=== PATIENT | male | born 1990 | race African-American/Black ===

== ENCOUNTER 2017-12-18 18:43 | Emergency (ER) | payer BC ==
[~2017-12-18] VITALS: Ht 180.3 cm; Wt 140.6 kg
[2017-12-18] MEDS ORDERED: KETOROLAC TROMETHAMINE 60 MG/2 ML VIAL IM ONE (19:45)
--- NOTE | 2017-12-18 20:32 | Diagnostic Imaging Report ---
SHOULDER 2+VW RT - HOPD HISTORY: Status post fall, right shoulder pain. COMPARISON: None available. FINDINGS: Internal rotation, external rotation, and scapular Y view Bones: No acute displaced fracture. Bony protuberance of the proximal humeral metadiaphysis with apex directed away from the joint space on scapular Y view may represent an osteochondroma. Osseous alignment is within normal limits. Joints: The joint spaces are well-maintained. Soft tissues: The soft tissues appear unremarkable. IMPRESSION: No acute radiographic abnormality. Bony exostosis of the proximal humerus may represent an osteochondroma. Signed by: DR. Luc Madsen MD on 12/18/2017 8:28 PM
--- NOTE | 2017-12-18 20:33 | Diagnostic Imaging Report ---
KNEE 4VW LT - HOPD HISTORY: Left patellar pain status post fall. COMPARISON: None available. FINDINGS: Bones: No acute displaced fracture. Osseous alignment is within normal limits. Joints: The joint spaces are well-maintained. Soft tissues: The soft tissues appear unremarkable. IMPRESSION: No acute radiographic abnormality. Signed by: DR. Luc Madsen MD on 12/18/2017 8:29 PM
[2017-12-18] MEDS ORDERED: IBUPROFEN400 MG PO (20:45)
[2017-12-18 21:26] VITALS: BP 142/94
== END 2017-12-18 20:45 | disposition home or self-care (01) ==
LOC: FSED 18:43
DX: S83.015A Lateral dislocation of left patella, initial encounter (principal); M25.511 Pain in right shoulder; X50.1XXA Overexertion from prolonged static or awkward postures, initial encounter; Y92.008 Other place in unspecified non-institutional (private) residence as the place of occurrence of the external cause
CPT/HCPCS: 29530; 73030; 73564; 99283; J1885

== ENCOUNTER 2018-02-07 03:07 | Emergency (ER) | payer BC ==
[~2018-02-07] VITALS: Ht 180.3 cm; Wt 140.6 kg
[~2018-02-07 03:07] MED LIST: IBUPROFEN400 MG PO
[2018-02-07] MEDS ORDERED: AMOXICILLIN/CLAVULANATE K 875 MG TAB PO STA (03:57)
[2018-02-07] MEDS ORDERED: TETANUS/DIPHTHERIA TOX ADULT 0.5 ML SYR IM ONE (04:00)
[2018-02-07] MEDS ORDERED: NEOMYCIN/POLYMYX/BACITR OINT 0.9 GM PKT ONE (04:03)
[2018-02-07] MEDS ORDERED: TRAMADOL HCL 50 MG TAB PO ONE (04:30)
--- NOTE | 2018-02-07 05:02 | Diagnostic Imaging Report ---
HAND 3+ VIEWS LEFT Comparison: None Clinical history: ^EVAL FOR FB/FX S/P DOG BITE ^[id number] ^0430 ^Y Findings: No fracture or dislocation. Mild soft tissue swelling without radiopaque foreign body. Impression: No acute bony abnormality or radiopaque foreign body Signed by: Dr Arlyn Jang MD on 02/07/2018 4:58 AM
[2018-02-07] MEDS ORDERED: ACETAMINOPHEN/CODEINE 300MG - 30MG TAB PO ONE (05:15)
[2018-02-07] MEDS ORDERED: ACETAMINOPHEN/CODEINE 300MG - 30MG TAB ONE (05:20)
== END 2018-02-07 05:10 | disposition home or self-care (01) ==
LOC: ER 03:07
DX: S60.472A Other superficial bite of right middle finger, initial encounter (principal); S60.474A Other superficial bite of right ring finger, initial encounter; S60.476A Other superficial bite of right little finger, initial encounter; S60.470A Other superficial bite of right index finger, initial encounter; S60.572A Other superficial bite of hand of left hand, initial encounter; S60.872A Other superficial bite of left wrist, initial encounter; W54.0XXA Bitten by dog, initial encounter; Y92.009 Unspecified place in unspecified non-institutional (private) residence as the place of occurrence of the external cause; Z23 Encounter for immunization; I10 Essential (primary) hypertension; K21.9 Gastro-esophageal reflux disease without esophagitis; M41.9 Scoliosis, unspecified
CPT/HCPCS: 90471; 90714; 99283

== ENCOUNTER 2018-11-27 14:11 | Emergency (ER) | payer BC ==
[~2018-11-27] VITALS: Ht 180.3 cm; Wt 143.1 kg
--- OUTSIDE RECORDS SUMMARY | 2018-11-27 14:13 | XMS REPORT ---
Author Author [facility] Address Unknown Phone Unavailable Care Team Providers Care Exercise Manager Name Role Phone Bradford DENT Unavailable Unavailable Brunilda MATT Unavailable Unavailable Problems This patient has no known problems. Allergies, Adverse Reactions, Alerts This patient has no known allergies or adverse reactions. Medications This patient has no known medications. Results Test Description Test Time Test Comments Text Results Atomic Results Result Comments HAND 3+ VIEWS LEFT 2018-02-07 04:56:00 [place] [address] Patient Name: ZANE VALERIO MR #: [id number] : 1990 Age/Sex: 27/M Req #: [id number] Adm Physician: Ordered by: RENETTA DENT MD Report #: [id number] Location: ER Room/Bed: Procedure: [id number] DX/HAND 3+ VIEWS LEFT Exam Date: 02/07/18 Exam Time: 429 REPORT STATUS: Signed HAND 3+ VIEWS LEFT Comparison: None Clinical history: EVAL FOR FB/FX S/P DOG BITE [id number] Y Findings: No fracture or dislocation. Mild soft tissue swelling without radiopaque foreign body. Impression: No acute bony abnormality or radiopaque foreign body Signed by: Dr Elise Jang MD on 02/07/2018 4:58 AM Dictated By: ELISE JANG MD 7 [place] scribed By: RICHARD on 02/07/18457 COPY TO: RENETTA DENT MD KNEE 4VW LT - HOPD 2017-12-18 20:28:00 [place] [address] Patient Name: ZANE VALERIO MR #: [id number] : 1990 Age/Sex: 27/M Req #: [id number] Adm Physician: Ordered by: JUSTA MATT MD Report #: [id number] Location: [facility] Room/Bed: Procedure: [id number] HOPD/KNEE 4VW LT - HOPD Exam Date: 12/18/17 Exam Time: 1999 REPORT STATUS: Signed KNEE 4VW LT - HOPD HISTORY: Left patellar pain status post fall. COMPARISON: None available. FINDINGS: Bones: No acute displaced fracture. Osseous alignment is within normal limits. Joints: The joint spaces are well-maintained. Soft tissues: The soft tissues appear unremarkable. IMPRESSION: No acute radiographic abnormality. Signed by: DR. Luc Cr MD on 12/18/2017 8:29 PM Dictated By: LUC CR MD 28 Transcribed By: RICHARD on 12/18/172028 COPY TO: JUSTA MATT MD SHOULDER 2+VW RT - HOPD 2017-12-18 20:20:00 [place] [address] Patient Name: ZANE VALERIO MR #: [id number] : 1990 Age/Sex: 27/M Req #: [id number] [facility] Physician: Ordered by: JUSTA MATT MD Report #: [id number] Location: [facility] Room/Bed: Procedure: [id number] HOPD/SHOULDER 2+VW RT - HOPD Exam Date: 12/18/17 Exam Time: 1999 REPORT STATUS: Signed SHOULDER 2+VW RT - HOPD HISTORY: Status post fall, right shoulder pain. COMPARISON: None available. FINDINGS: Internal rotation, external rotation, and scapular Y view Bones: No acute displaced fracture. Bony protuberance of the proximal humeral metadiaphysis with apex directed away from the joint space on scapular Y view may represent an osteochondroma. Osseous alignment is within normal limits. Joints: The joint spaces are well-maintained. Soft tissues: The soft tissues appear unremarkable. IMPRESSION: No acute radiographic abnormality. Bony exostosis of the proximal humerus may represent an osteochondroma. Signed by: DR. Luc Cr MD on 12/18/2017 8:28 PM Dictated By: LUC CR MD 27 Transcribed By: RICHARD on 12/18/172027 COPY TO: JUSTA MATT MD
--- OUTSIDE RECORDS SUMMARY | 2018-11-27 14:13 | XMS REPORT | Clinical Summary ---
Author Author [facility] Address Unknown Phone Unavailable Care Team Providers Care Clinical Editor Name Role Phone Rishi Carpenter MD PCP Allergies No Known Allergies Medications End Date Status Medication Sig Dispensed Refills Start Date Active traMADol (ULTRAM) 50 mg 1 tablet 0 tabletIndications: Pain daily. 8 Active SUMAtriptan (IMITREX) 50 Take 1 tablet 8 tablet 3 MG tabletIndications: (50 mg total) 9 Migraine without aura and by mouth once without status as needed for migrainosus, not migraine for intractable up to 1 dose. May repeat in 2 hours if needed. Max 2 doses a day Active losartan-hydrochlorothiaz TAKE 1 TABLET 90 tablet 1 scar (HYZAAR) 100-25 mg BY MOUTH 9 per tabletIndications: EVERY DAY Essential hypertension Active ipratropium (ATROVENT) USE 2 SPRAYS 30 mL 0 0.03 % nasal IN EACH 9 sprayIndications: NOSTRIL 3 Seasonal allergic (THREE) TIMES rhinitis due to pollen A DAY FOR 5 DAYS. Active fluticasone propionate SPRAY 2 16 mL 1 (FLONASE) 50 SPRAYS INTO 9 mcg/actuation nasal EACH NOSTRIL sprayIndications: EVERY DAY Seasonal allergic rhinitis due to pollen Active omeprazole (PriLOSEC) 20 Take 20 mg by 0 MG capsule mouth daily. Active wkjyvpf-ykwiekmcvtpcw-baw Take 1 tablet 0 feine (EXCEDRIN MIGRAINE) by mouth 250-250-65 mg per tablet every 6 (six) hours as needed for headaches. 04/08/2018 Discontinued (Discontinued by another clinician) amoxicillin-pot 1 tablet 2 0 clavulanate (AUGMENTIN) (two) times a 8 875-125 mg per tablet day. 02/27/2018 Discontinued (Dose adjustment) losartan-hydrochlorothiaz Take 1 tablet 1 scar (HYZAAR) 50-12.5 mg by mouth 8 per tablet daily. 09/12/2018 Discontinued (Stop Taking at Discharge) IBU 800 mg tablet 1 tablet 3 0 (three) times 8 a day. 04/08/2018 Discontinued (Discontinued by another clinician) acetaminophen-codeine Take 1 tablet 0 (TYLENOL WITH CODEINE #3) by mouth 8 300-30 mg per tablet every 6 (six) hours as needed. for pain 09/12/2018 Discontinued (Stop Taking at Discharge) naproxen (NAPROSYN) 500 Take 500 mg 0 MG tablet by mouth 2 (two) times a day with meals. 06/03/2018 Discontinued (Reorder) losartan-hydrochlorothiaz Take 1 tablet 90 tablet 0 scar (HYZAAR) 100-25 mg by mouth 8 per tabletIndications: daily. Essential hypertension 04/30/2018 Discontinued (Reorder) SUMAtriptan (IMITREX) 50 Take 1 tablet 8 tablet 0 MG tabletIndications: (50 mg total) 8 Migraine without aura and by mouth once without status as needed for migrainosus, not migraine for intractable up to 1 dose. May repeat in 2 hours if needed. Max 2 doses a day 08/16/2018 Discontinued (Reorder) fluticasone propionate 2 sprays (100 15.8 mL 3 (FLONASE) 50 mcg total) by 9 mcg/actuation nasal Each Nare sprayIndications: route daily. Seasonal allergic rhinitis due to pollen 07/03/2018 Discontinued (Reorder) ipratropium (ATROVENT) 2 sprays into 30 mL 0 0.03 % nasal each nostril 9 sprayIndications: 3 (three) Seasonal allergic times a day rhinitis due to pollen for 5 days. 10/12/2018 celecoxib (CeleBREX) 100 Take 1 60 capsule 0 MG capsule capsule (100 9 mg total) by mouth 2 (two) times a day for 30 days. 09/27/2018 traMADol (ULTRAM) 50 mg Take 1 tablet 15 tablet 0 tablet (50 mg total) 9 by mouth every 8 (eight) hours as needed for moderate pain for up to 15 days. Active Problems Problem Noted Date Patellar maltracking 09/12/2018 Diaphragmatic hernia without obstruction and without gangrene 08/12/2018 Acute traumatic internal derangement of left knee 04/18/2018 Overview: Encouraged follow up with specialist as planned. Closed displaced fracture of right patella 04/18/2018 Essential hypertension 02/27/2018 Morbid obesity due to excess calories 02/27/2018 Encounters Care Team Description Date Type Specialty Abel Tong MD 09/12/2018 Anesthesia General Surgery Event Edwardo Garcia Jr., MD LEFT DIAGNOSTIC KNEE SCOPE, SYNOVECTOMY, INTRA-ARTICULAR INJECTION 09/12/2018 Surgery General Surgery Edwardo Garcia Jr., MD Patellar maltracking, unspecified laterality (Primary Dx) 09/12/2018 Hospital General Surgery Encounter Rishi Carpenter MD Seasonal allergic rhinitis due to pollen 08/16/2018 Refill Internal Medicine Edwardo Garcia Jr., MD Acute traumatic internal derangement of left knee, subsequent encounter (Primary Dx); Impingement syndrome involving patellar fat pad of left knee 08/12/2018 Office Visit Orthopedic Surgery Edwardo Garcia Jr., MD Acute traumatic internal derangement of left knee, sequela; Closed displaced fracture of right patella, unspecified fracture morphology, initial encounter 07/16/2018 Hospital Radiology Encounter Rishi Carpenter MD Seasonal allergic rhinitis due to pollen 07/03/2018 Refill Internal Medicine Rishi Carpenter MD Essential hypertension (Primary Dx); Acute non-recurrent maxillary sinusitis; Seasonal allergic rhinitis due to pollen; NSAID induced gastritis; Hiatal hernia with GERD and esophagitis; Morbid obesity due to excess calories (HCC) 06/10/2018 Office Visit Internal Medicine Rishi Carpenter MD Essential hypertension 06/03/2018 Refill Internal Medicine Rishi Carpenter MD Essential hypertension (Primary Dx); ALECIA (obstructive sleep apnea); Morbid obesity due to excess calories (HCC); Migraine without aura and without status migrainosus, not intractable 04/30/2018 Office Visit Internal Medicine Edwardo Garcia Jr., MD Closed displaced fracture of right patella, unspecified fracture morphology, initial encounter (Primary Dx); Acute traumatic internal derangement of left knee, sequela 04/08/2018 Office Visit Orthopedic Surgery Tiana Rayo MA Left knee pain, unspecified chronicity (Primary Dx) 04/04/2018 Orders Only Orthopedic Surgery Rishi Carpenter MD Essential hypertension (Primary Dx); Morbid obesity due to excess calories (HCC); ALECIA (obstructive sleep apnea); H. pylori infection; Acute traumatic internal derangement of left knee, sequela; Visit for wound check; Migraine without aura and without status migrainosus, not intractable 02/27/2018 Office Visit Internal Medicine Vira Banks 02/12/2018 Telephone Family Medicine after 11/26/2017 Family History Medical History Relation Name Comments Diabetes Father Relation Name Status Comments Father Social History Date Tobacco Use Types Packs/Day Years Used Never Smoker Smokeless Tobacco: Never Used Drinks/Week oz/Week Comments Alcohol Use 1 Cans of beer 1.0 socially Yes Sex Assigned at Date Recorded Not on file Industry Job Start Date Occupation Not on file Not on file Not on file Travel End Travel History Travel Start No recent travel history available. Last Filed Vital Signs Reading Time Taken Comments Vital Sign 127/58 09/12/2018 11:30 AM CDT Blood Pressure 78 09/12/2018 11:30 AM CDT Pulse 36.8 C (98.3 F) 09/12/2018 10:24 AM CDT Temperature 24 09/12/2018 11:30 AM CDT Respiratory Rate 97% 09/12/2018 11:30 AM CDT Oxygen Saturation - - Inhaled Oxygen Concentration 142 kg (314 lb 1.6 oz) 09/12/2018 7:36 AM CDT Weight 180.3 cm (5' 11") 09/12/2018 7:36 AM CDT Height 43.81 09/12/2018 7:36 AM CDT Body Mass Index Plan of Treatment Health Maintenance Due Date Last Done Comments INFLUENZA VACCINE 10/02/2018 Procedures Comments Procedure Name Priority Date/Time Associated Diagnosis MS AN ELECTIVE Routine 09/12/2018 SUPRAGLOTTIC AIRWAY 9:16 AM CDT Procedure Note - Elda Gaitan - 09/12/2018 9:16 AM CDT Airway Performed by: Elda Gaitan Authorized by: Abel Tong MD Location: OR Urgency: Elective Difficult Airway: No Anesthesio logist: Abel Tong MD Resident/C RNA/AA: Elda Gaitan Performed by: resident/C RNA/AA Preoxygena gretta with 100% O2: Yes C-spine Precaution s Maintained Throughout : Yes Mask Ventilatio n: Not attempted Final Airway Type: Supraglott ic airway Final LMA: Unique LMA Size: 5 Number of Attempts at Approach: 1 OPERATION, KNEE, 09/12/2018 Patellar maltracking ARTHROSCOPIC 9:02 AM CDT Impingement syndrome involving patellar fat pad of left knee HGB & HCT I-STAT Routine 09/12/2018 7:45 AM CDT MRI KNEE WO CONTRAST LEFT Routine 07/16/2018 Acute traumatic internal 4:19 PM CDT derangement of left knee, sequela Closed displaced fracture of right patella, unspecified fracture morphology, initial encounter COMPREHENSIVE METABOLIC Routine 06/10/2018 Essential hypertension PANEL 2:47 PM CDT TRIGLYCERIDES Routine 06/10/2018 Morbid obesity due to 2:46 PM CDT excess calories (HCC) HDL CHOLESTEROL Routine 06/10/2018 Morbid obesity due to 2:46 PM CDT excess calories (HCC) LDL CHOLESTEROL, DIRECT Routine 06/10/2018 Morbid obesity due to 2:46 PM CDT excess calories (HCC) COMPREHENSIVE METABOLIC Routine 04/30/2018 Essential hypertension PANEL 2:45 PM LINE [facility] HEMOGLOBIN A1C Routine 04/30/2018 Essential hypertension 2:37 PM LINE WALKER CBC WITH PLATELET AND Routine 04/30/2018 Essential hypertension DIFFERENTIAL 2:37 PM LINE W[facility]ER XR KNEE 4+ VW LEFT Routine 04/08/2018 Left knee pain, 3:54 PM LINE [facility] unspecified chronicity after 11/26/2017 Results * HGB & HCT I-Stat (09/12/2018 7:45 AM CDT) Hematocrit, 49.0Comment: test performed by 36.0 - 50.0 % [facility] whole blood hide and 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 [place] [id number] [facility] * MRI Knee Left Wo Contrast (07/16/2018 4:19 PM CDT) Specimen Narrative Performed At EXAMINATION:MRI KNEE WO CONTRAST LEFT [facility] CLINICAL HISTORY:S83.105S Unspecified dislocation of left kneesequela, S82.001A Unspecified fracture of right patellainitial encounter for closed fracture, patella fx TECHNIQUE:Multiplanar multisequence MR imaging of theleft knee was performed without contrast. COMPARISON:Radiographs from 04/08/2018 FINDINGS: Cruciate ligaments: Intact. Menisci: There is mild superior articular surface irregularity of the body of the medial meniscus without discrete tear. Lateral meniscus is intact. Collateral ligaments: Intact. Bone marrow: No focal abnormality. There is an 8 mm subcortical cyst involving the tibial attachment of the PCL. Articular cartilage: There is severe cartilage irregularity and thinning involving the lateral aspect of the lateral femoral condyle with subchondral edema measuring 1 cm in the coronal plane and 1.4 cm in sagittal plane (series 4 image 19 and series 8 image 7). No focal defect noted in the medial and patellofemoral compartment. Effusion: Joint fluid is physiologic. Extensor mechanism: Intact. Mild lateral patellar tilt. Soft tissues: No focal abnormality. IMPRESSION: 1.No evidence of patellar fracture. 2.Area of severe cartilage irregularity and thinning with subchondral edema in the lateral aspect of lateral femoral condyle. 3.Mild superior articular surface irregularity of the body of the medial meniscus. A nondisplaced horizontal tear is not excluded. [id number] Procedure Note Hm Interface, Radiology Results Incoming - 07/16/2018 4:44 PM CDT EXAMINATION: MRI KNEE WO CONTRAST LEFT CLINICAL HISTORY: S83.105S Unspecified dislocation of left knee sequela, S82.001A Unspecified fracture of right patella initial encounter for closed fracture, patella fx TECHNIQUE: Multiplanar multisequence MR imaging of the left knee was performed without contrast. COMPARISON: Radiographs from 04/08/2018 FINDINGS: Cruciate ligaments: Intact. Menisci: There is mild superior articular surface irregularity of the body of the medial meniscus without discrete tear. Lateral meniscus is intact. Collateral ligaments: Intact. Bone marrow: No focal abnormality. There is an 8 mm subcortical cyst involving the tibial attachment of the PCL. Articular cartilage: There is severe cartilage irregularity and thinning involving the lateral aspect of the lateral femoral condyle with subchondral edema measuring 1 cm in the coronal plane and 1.4 cm in sagittal plane (series 4 image 19 and series 8 image 7). No focal defect noted in the medial and patellofemoral compartment. Effusion: Joint fluid is physiologic. Extensor mechanism: Intact. Mild lateral patellar tilt. Soft tissues: No focal abnormality. IMPRESSION: 1. No evidence of patellar fracture. 2. Area of severe cartilage irregularity and thinning with subchondral edema in the lateral aspect of lateral femoral condyle. 3. Mild superior articular surface irregularity of the body of the medial meniscus. A nondisplaced horizontal tear is not excluded. [facility]-[id number] [facility] Organization Address City/State/Zipcode Phone Number [facility] [address] [place] [address] * Comprehensive metabolic panel (06/10/2018 2:47 PM CDT) Only the most recent of 2 results within the time period is included. Glucose 122 (H) 65 - 99 mg/dL [facility] BUN, whole 16 6 - 20 mg/dL [facility] blood Creatinine 0.95 0.76 - 1.27 mg/dL [facility] EGFR Non-Afr. 111 >59 mL/min/1.73 [facility] [place] EGFR 128 >59 mL/min/1.73 [facility] [place] BUN/creatinine 17 9 - 20 [facility] ratio Sodium 139 134 - 144 mmol/L [facility] Potassium 4.1 3.5 - 5.2 mmol/L [facility] Chloride 99 96 - 106 mmol/L [facility] CO2 22 20 - 29 mmol/L [facility] Calcium 10.2 8.7 - 10.2 mg/dL [facility] Protein 7.8 6.0 - 8.5 g/dL [facility] Albumin, S 5.0 3.5 - 5.5 g/dL [facility] Globulin, total 2.8 1.5 - 4.5 g/dL [facility] Albumin/globuli 1.8 1.2 - 2.2 [facility] n ratio Total bilirubin 1.4 (H) 0.0 - 1.2 mg/dL [facility] Alkaline 64 39 - 117 IU/L [facility] phosphatase AST 28 0 - 40 IU/L [facility] ALT 76 (H) 0 - 44 IU/L [facility] Specimen Blood Narrative Performed At Performed at:[address] [place], [place] [id number] Armed Custom Protection Officer: Lavelle Pacheco MD, Phone:[phone] Performing Organization Address City/[facility] Phone Number [facility] * Triglycerides (06/10/2018 2:46 PM CDT) Pathologist [facility] Triglycerides 76 0 - 149 mg/dL [facility] Specimen Blood Narrative Performed At Performed at:[address] [place], [place] [id number] Armed Custom Protection Officer: Lavelle Pacheco MD, Phone:[phone] Performing Organization Address [facility] Phone Number [facility] * LDL cholesterol, direct (06/10/2018 2:46 PM CDT) [facility] LDL cholesterol 160 (H) 0 - 99 mg/dL [facility] Specimen Blood Narrative Performed At Performed at:[address] [place], [place] [id number] Armed Custom Protection Officer: Lavelle Pacheco MD, Phone:[phone] Performing Organization Address [facility] Phone Number [facility] * HDL cholesterol (06/10/2018 2:46 PM CDT) [facility] HDL cholesterol 41 >39 mg/dL [facility] Specimen Blood Narrative Performed At Performed at:[address] [place], [place] [id number] Armed Custom Protection Officer: Lavelle Pacheco MD, Phone:[phone] Performing Organization Address [facility] Phone Number [facility] * CBC with platelet and differential (04/30/2018 2:37 PM LINE WALKER) Pathologist [facility] WBC 9.3 3.4 - 10.8 x10E3/uL [facility] RBC 5.62 4.14 - 5.80 x10E6/uL [facility] HGB 15.6 13.0 - 17.7 g/dL [facility] HCT 47.3 37.5 - 51.0 % [facility] MCV 84 79 - 97 fL [facility] MCH 27.8 26.6 - 33.0 pg [facility] MCHC 33.0 31.5 - 35.7 g/dL [facility] RDW 13.0 12.3 - 15.4 % [facility] Platelet count 292 150 - 379 x10E3/uL [facility] Neutrophils 63 Not Estab. % [facility] Lymphocytes 27 Not Estab. % [facility] Monocytes 6 Not Estab. % [facility] Eosinophils 4 Not Estab. % [facility] Basophils 0 Not Estab. % [facility] Neutrophils, 5.9 1.4 - 7.0 x10E3/uL [facility] absolute Lymphocytes, 2.5 0.7 - 3.1 x10E3/uL [facility] absolute Monocytes, 0.5 0.1 - 0.9 x10E3/uL [facility] absolute Eosinophils, 0.4 0.0 - 0.4 x10E3/uL [facility] absolute Basophils, 0.0 0.0 - 0.2 x10E3/uL [facility] absolute Immature 0 Not Estab. % [facility] granulocytes Immature grans 0.0 0.0 - 0.1 x10E3/uL [facility] (abs) Specimen Blood Narrative Performed At Performed at: - [id number] Armed Custom Protection Officer: Lavelle Pacheco MD, Phone:[phone] Performing Organization Address [facility] Phone Number [facility] * Hemoglobin A1c (04/30/2018 2:37 PM LINE WALKER) Hemoglobin A1C 5.4 4.8 - 5.6 % [facility] Comment: Prediabetes: 5.7 - 6.4 Diabetes: >6.4 Glycemic control for adults with diabetes: <7.0 Specimen Blood Narrative Performed At Performed at: [id number] Armed Custom Protection Officer: Lavelle Pacheco MD, Phone:[phone] Performing Organization Address [facility] Phone Number [facility] * XR Knee 4+ Vw Left (04/08/2018 3:54 PM LINE WALKER) Specimen Impressions Performed At Chronic deformity of the patella consistent with Old fracture history with [facility] suspicion for Patellofemoral Arthritis. Additional imaging recommended. Narrative Performed At [facility] CLINICAL: left knee fracture (old) with chronic pain FINDINGS: AP, lateral, tunnel, and sunrise views were obtained of the left knee. The bones are intact but there is chronic deformity of the patella. There is no effusion. Performing Organization Address City/State/[facility] Phone Number [facility] [address] [place] [address] after 11/26/2017 Insurance Type Payer Benefit Subscriber ID Effective Phone Address Plan / Dates Group PPO BCBS BCBS OUT xxxxxxxxxxxx 2013-P OF STATE resent Advance Directives For more information, please contact: [phone] Explanation Type Date Recorded Advance Directives, 09/10/2018 6:56 PM Living Will and Medical Power of Security Installer
--- NOTE | 2018-11-27 15:22 | Diagnostic Imaging Report ---
A single frontal view of the chest. HISTORY: Chest pain COMPARISON: None available. DISCUSSION: Overlying monitoring leads. Soft tissue attenuation partially limits sensitivity of the exam. Tubes/Lines: None Lungs and pleura: The lungs are well inflated. No evidence of a consolidative pneumonia or pulmonary alveolar edema. No definite pleural effusion or pneumothorax is identified. Heart and mediastinum: The cardiomediastinal silhouette appear(s) unremarkable. Bones and soft tissues: Partially visualized bilateral thoracolumbar spinal fixation bao constructs. IMPRESSION: No acute radiographic abnormality. Signed by: Dr. Lazarus Monroe D.O., M.M.M. on 11/27/2018 3:19 PM
[2018-11-27 16:03] VITALS: BP 149/76
== END 2018-11-27 16:12 | disposition home or self-care (01) ==
LOC: FSED 14:11
DX: R07.89 Other chest pain (principal)
CPT/HCPCS: 71045; 80053; 82553; 84484; 85025; 85379; 93005; 99284